=== PATIENT | male | born 1975 | race Caucasian/White ===

== ENCOUNTER → 2018-04-14 | Outpatient (CLI) | payer BC ==
--- NOTE | 2018-04-14 16:53 | NM ---
EXAMINATION TYPE: NM hepatobiliary w EF DATE OF EXAM: 04/14/2018 COMPARISON: NONE HISTORY: TECHNIQUE: After the intravenous administration of 5.5 mCi Tc 99m Mebrofenin hepatobiliary scintigrap hy is performed. Immediate images post injection. FINDINGS: There is satisfactory initial accumulation of tracer by the liver. The gallbladder is visualized wit hin 8 minutes. The small bowel activity is noted within 28 minutes. At one hour 8 ounces of oral en sure plus is given to mimic CCK and gallbladder ejection fraction is calculated at 87 %, in the kathy l range. Therefore there is no scintigraphic evidence of cystic or common bile duct obstruction to s uggest acute cholecystitis or gallbladder dyskinesia. IMPRESSION: Normal exam. Normal gallbladder ejection fraction. No focal liver defect.
== END | disposition home or self-care (01) ==
LOC: RADNMMAIN 14:34
PROVIDERS: ATTEND Family Medicine
DX: R10.11 Right upper quadrant pain (principal); D49.6 Neoplasm of unspecified behavior of brain
CPT/HCPCS: 78226; A9537

== ENCOUNTER → 2018-04-17 | Outpatient (CLI) | payer BC ==
--- NOTE | 2018-04-18 06:54 | CT ---
EXAMINATION TYPE: CT brain wo/w con DATE OF EXAM: 04/17/2018 COMPARISON: CT brain April 29, 2015 HISTORY: headaches, dizziness, changes in vision. hx of dermoid cyst X [address] DLP: 1922 mGycm Automated Exposure Control for Dose Reduction was Utilized. TECHNIQUE: ,CT scan of the head is performed without and with IV Contrast, patient injected with 100 mL of Isovue 300. FINDINGS: Noncontrast images show no acute intracranial hemorrhage or midline shift. The ventricles and sulci are within normal limits in size. Lal-white matter differentiation is maintained. Postcon trast images show no suspicious enhancing intraparenchymal mass. There is rim calcified fat dense les ion superior right temporal region measuring 1.8 x 1.0 cm transversely by 1.4 cm craniocaudal dimensi on axial image 19 and coronal image 30. Lesion stable in size and appearance from prior CT Persistent anterior metopic suture noted. The globes are intact and the visualized sinuses are clear. Dominant left vertebral artery is incidentally noted. 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
== END | disposition home or self-care (01) ==
LOC: RADCTMAIN 16:41
PROVIDERS: ATTEND Family Medicine
DX: D49.6 Neoplasm of unspecified behavior of brain (principal)
CPT/HCPCS: 70470; Q9967

== ENCOUNTER → 2018-12-15 | Outpatient (CLI) | payer BC ==
--- NOTE | 2018-12-15 09:00 | US ---
EXAMINATION TYPE: US thyroid st tissue head/neck DATE OF EXAM: 12/15/2018 COMPARISON: US from 2010 CLINICAL HISTORY: E04.1 Thyroid Nodule. GLAND SIZE: Right Lobe: 5.3 x 1.7 x 1.5 cm Overall Parenchyma: homogenous Left Lobe: 5.4 x 1.6 x 1.3 cm Overall Parenchyma: homogeneous Isthmus Thickness: 0.3 cm NODULES RIGHT: # of nodules measured on right: 1 1. 0.7 X 0.7 x 0.7 cm hypoechoic solid nodule at the mid pole with well-defined margins; . This no dule is wider than tall and shows no intranodular vascularity. Prior size: 0.7 x 0.7 x 0.7 cm LEFT: # of nodules measured on left: 1 1. 0.5 X 0.3 x 0.4 cm hypoechoic mixed nodule at the mid pole with well-defined margins; . This no dule is wider than tall and shows no intranodular vascularity. Prior size: 0.5 cm Additional tiny cyst seen upper pole. ISTHMUS: # of nodules measured in the isthmus: 0 Bilateral neck scanned, no evidence of lymphadenopathy. Nodules as described. IMPRESSION: Essentially stable exam.
== END | disposition home or self-care (01) ==
LOC: RADUSWWP 07:48
PROVIDERS: ATTEND Family Medicine
DX: E04.1 Nontoxic single thyroid nodule (principal)
CPT/HCPCS: 76536

== ENCOUNTER → 2020-09-21 | Outpatient (CLI) | payer BC ==
--- NOTE | 2020-09-21 11:50 | ECHOF ---
Referral Reason:R07.89 Atypical Chest Pain MEASUREMENTS -------- HEIGHT: 182.9 cm WEIGHT: 88.5 kg BP: IVSd: 0.8 cm (0.6 - 1.1) LVIDd: 4.4 cm (3.9 - 5.3) LVPWd: 1.0 cm (0.6 - 1.1) IVSs: 1.3 cm LVIDs: 3.0 cm LVPWs: 1.2 cm LA Diam: 3.7 cm (2.7 - 3.8) LAESV Index (A-L): 20.96 ml/m Ao Diam: 3.2 cm (2.0 - 3.7) AV Cusp: 2.0 cm (1.5 - 2.6) MV EXCURSION: 29.154 mm (> 18.000) MV EF SLOPE: 159 mm/s (70 - 150) EPSS: 0.7 cm MV E Franco: 0.56 m/s MV DecT: 178 ms MV A Franco: 0.62 m/s MV E/A Ratio: 0.90 RAP: 5.00 mmHg RVSP: 24.64 mmHg FINDINGS -------- Sinus rhythm. This was a technically good study. LV size, wall thickness and systolic function are normal, with an EF greater than 55%. The left shalom tricular size is normal. The right ventricle is normal in size. Normal LA size by volume 22+/-6 ml/m2. The right atrial size is normal. The aortic valve is trileaflet, and appears structurally normal. No aortic stenosis or regurgitation. Mild mitral regurgitation is present. Mild tricuspid regurgitation present. Right ventricular systolic pressure is normal at < 35 mmHg. There is no pulmonic regurgitation present. The aortic root size is normal. There is no pericardial effusion. CONCLUSIONS -------- 1. LV size, wall thickness and systolic function are normal, with an EF greater than 55%. 2. The left ventricular size is normal. 3. The right ventricle is normal in size. 4. Normal LA size by volume 22+/-6 ml/m2. 5. The right atrial size is normal. 6. Mild mitral regurgitation is present. 7. Mild tricuspid regurgitation present. 8. The aortic root size is normal. 9. There is no pericardial effusion. BOILER HOUSE INSPECTOR: Holly Rao RDCS
--- NOTE | 2020-09-21 12:10 | P.STRESS ---
- Stress Test Note Stress Test Results/Findings: Exam Performed: stress test Exam Date: 09/21/20 Reason for Exam: ATYPICAL CP Height: 5 ft 11 in Weight: 86 kg Protocol: EXERCISE TOLERANCE TEST Stage: 5 Duration of Exercise: 13:37 Resting Heart Rate: 63 Resting Blood Pressure: 126/88 Maximum Achieved Heart Rate: 185 Maximum Achieved Blood Pressure: 167/95 85% PMHR: 149 100% PMHR: 175 METS: 14.1 Technologist Comment: Stress Test Results/Findings: Patient underwent exercise stress EKG with a Owen protocol treadmill stress test. Patient exercised into Stage 5 for a total of 13 minutes 37 seconds reaching a total of 14.1 METS. Patient's maximum heart rate was 185 which represented 100 % age-predicted maximum heart rate. Stress EKG findings: At baseline patient's EKG showed normal sinus rhythm, normal axis, no significant ST or T wave abnormalities. At peak exercise, EKG showed no significant change from baseline. Conclusions: 1. Normal EKG response to exercise without evidence of inducible ischemia. 2. Excellent exercise capacity.
== END | disposition home or self-care (01) ==
LOC: RADNMMAIN 08:27
PROVIDERS: ATTEND Family Medicine
DX: I08.1 Rheumatic disorders of both mitral and tricuspid valves (principal)
CPT/HCPCS: 93017; 93306

== ENCOUNTER 2023-03-10 11:51 | Emergency (ER) | payer BC ==
[2023-03-10] MEDS ORDERED: DIPH,PERTUS(ACELL)TETVAC-LF 0.5 ML VIAL IM ONE (12:33)
--- NOTE | 2023-03-10 12:36 | ED ---
Wound/Laceration HPI - General Chief Complaint: Wound/Laceration Stated Complaint: finger lacteration Time Seen by Provider: 03/10/23 12:12 Source: patient Mode of arrival: ambulatory Limitations: no limitations - History of Present Illness Initial Comments: The patient's 48-year-old gentleman presents emergency room with complaints of a laceration of the left distal third finger. Patient went to reach over a saw to get a piece of wood out of miter saw when the blade cut his finger. Patient is right-handed. His tetanus has not been updated in several years. He denies any numbness tingling or decreased range of motion of the finger. - Related Data Previous Rx's Medication Instructions Recorded Cephalexin [Keflex] 500 mg PO Q6HR #40 cap 03/10/23 Allergies Allergy/AdvReac Type Severity Reaction Status Date / Time No Known Allergies Allergy Verified 03/10/23 12:09 Review of Systems ROS Statement: Those systems with pertinent positive or pertinent negative responses have been documented in the HPI. ROS Other: All systems not noted in ROS Statement are negative. Past Medical History Past Medical History: No Reported History History of Any Multi-Drug Resistant Organisms: None Reported Past Surgical History: No Surgical Hx Reported, Hernia Repair, Orthopedic Surgery Past Psychological History: No Psychological Hx Reported Smoking Status: Never smoker Past Alcohol Use History: None Reported Past Drug Use History: None Reported General Exam Limitations: no limitations General appearance: alert, in no apparent distress Head exam: Present: atraumatic Eye exam: Present: normal appearance, PERRL Extremities exam: Present: full ROM, other (contused,irregular laceration of the distasl left 3rd finger over the tufy, NVI, Tendons intact. Normal ROM and strength over all joints with flexion & extension, 2.5cm laceration with skin avulsion) Neurological exam: Present: oriented X3, CN II-XII intact Skin exam: Present: warm, dry (irregular 2.5cm laceration distal left 3rd finger with partial avulsion and contused tissue. bleeding controlled, no FB. NVI) Course Vital Signs 03/10/23 12:07 Temperature 98.1 F Pulse Rate 65 Respiratory 18 Rate Blood Pressure 146/82 O2 Sat by Pulse 99 Oximetry - Reevaluation(s) Reevaluation #1: 03/10/23 1351 Patient had his wound soaked in saline with Betadine prior to the laceration repair and imaging. I discussed x-rays which were negative for any fracture or deformity or other acute changes. No foreign body seen. Patient is neurovascular intact and tendon is intact. He has normal range of motion and strength at all joints specifically the DIP. I was able to tack some of the laceration back using 5 sutures. There is heard of the laceration that was avulsion that was left open as there were no edges to approximate.the patient's tetanus was updated today. I will cover with prophylactic antibiotics as this was a dirty wound with a partial avulsion. I discussed following up with the PCP and discussed suture removal and signs to return to the emergency room. Procedures - Laceration Laceration #1 Consent Obtained: verbal consent Site: other (Distal left third finger) Description: avulsion, irregular, contaminated Depth: simple, single layer Anesthetic Used: lidocaine 1% Anesthesia Technique: local infiltration Pre-repair: wound explored, irrigated extensively, deep structures intact, wound margins revised, extreme cleansing Type of Sutures: nylon Size of Sutures: 4-0 Technique: simple, interrupted, running Complications: pain, bleeding Patient Tolerated Procedure: well Additional Comments: There is partially avulsed area lateral to the suture repair. Contused tissue was holding on by a few fibers, this was trimmed off. Surgifoam was placed over the avulsed area. bleeding controlled. Medical Decision Making - Medical Decision Making Was pt. sent in by a medical professional or institution (DENYS Mckeon, BOARD CERTIFIED MUSIC THERAPIST, urgent care, hospital, or custodial...) When possible be specific @ -[No] Did you speak to anyone other than the patient for history (EMS, parent, family, police, friend...)? What history was obtained from this source @ - at bedside Did you review nursing and triage notes (agree or disagree)? Why? @ -[I reviewed and agree with nursing and triage notes] Were old charts reviewed (outside hosp., previous admission, EMS record, old EKG, old radiological studies, urgent care reports/EKG's, custodial records)? Report findings @ -[No old charts were reviewed] Differential Diagnosis (chest pain, altered mental status, abdominal pain women, abdominal pain men, vaginal bleeding, weakness, fever, dyspnea, syncope, headache, dizziness, GI bleed, back pain, seizure, CVA, palpatations, mental health, musculoskeletal)? @ -Crush injury, contusion of the finger, open laceration, laceration of the finger, tetanus vaccination EKG interpreted by me (3pts min.). @ -[As above] X-rays interpreted by me (1pt min.). @ -X-ray shows a superficial laceration however there is no fracture of the bones, no deformity no foreign body seen. Radiology report pending for confirmation of acute changes. CT interpreted by me (1pt min.). @ -[None done] U/S interpreted by me (1pt. min.). @ -[None done] What testing was considered but not performed or refused? (CT, X-rays, U/S, labs)? Why? @ -[None] What meds were considered but not given or refused? Why? @ -[None] Did you discuss the management of the patient with other professionals (professionals i.e. , PA, BOARD CERTIFIED MUSIC THERAPIST, lab, RT, psych nurse, case management social worker, regional retail sales manager, teacher, medical scientific officer, catalytic case operator)? Give summary @ -Discussed patient's injury workup disposition with Dr. Durbin, attending ED physician today. Was smoking cessation discussed for >3mins.? @ -[No] Was critical care preformed (if so, how long)? @ -[No] Were there social determinants of health that impacted care today? How? (Homelessness, low income, unemployed, alcoholism, drug addiction, transportation, low edu. Level, literacy, decrease access to med. care, correction, rehab)? @ -[No] Was there de-escalation of care discussed even if they declined (Discuss DNR or withdrawal of care, Hospice)? DNR status @ -[No] What co-morbidities impacted this encounter? (DM, HTN, Smoking, COPD, CAD, Cancer, CVA, ARF, Chemo, Hep., AIDS, mental health diagnosis, sleep apnea, morbid obesity)? @ -[None] Was patient admitted / discharged? Hospital course, mention meds given and route, prescriptions, significant lab abnormalities, going to OR and other pertinent info. @ -Patient stable. He is nothing intact and tendons intact. He is stable to follow-up as an outpatient and may continue treatment with antibiotics and signs return to the emergency room at home. He does understand signs return to the emergency room. we discussed following up with the primary care physician for suture removal as well. Undiagn osed new problem with uncertain prognosis? @ -[No] Drug Therapy requiring intensive monitoring for toxicity (Heparin, Nitro, Insulin, Cardizem)? @ -[No] Were any procedures done? @ -Laceratojn repair of the distal Left 3rd finger Diagnosis/symptom? @ -:Laceration of the Distal left third finger, avulsion laceration of the finger, tetanus vaccination, contusion of the distal left third finger Acute, or Chronic, or Acute on Chronic? @ -ACute ] Uncomplicated (without systemic symptoms) or Complicated (systemic symptoms)? @ -[Uncomplicated] Side effects of treatment? @ -[No] Exacerbation, Progression, or Severe Exacerbation? @ -[No] Poses a threat to life or bodily function? How? (Chest pain, USA, LA, pneumonia, PE, COPD, DKA, ARF, appy, cholecystitis, CVA, Diverticulitis, Homicidal, Suicidal, threat to staff... and all critical care pts) @ -[No] - Radiology Data Radiology results: report reviewed, image reviewed Disposition Clinical Impression: Laceration, Avulsion, finger tip, Tetanus toxoid vaccination administered at current visit, Finger contusion Disposition: HOME SELF-CARE Condition: Good Instructions (If sedation given, give patient instructions): Diphtheria/Pertussis/Tetanus Vaccine (By injection), Finger Laceration (ED), Skin Avulsion (ED), Tetanus (ED) Prescriptions: Cephalexin [Keflex] 500 mg PO Q6HR #40 cap Is patient prescribed a controlled substance at d/c from ED?: No Referrals: Ken Dooley DO [Primary Care Provider] - 1-2 days Time of Disposition: 14:08
--- NOTE | 2023-03-10 12:55 | XR ---
EXAMINATION TYPE: XR finger LT DATE OF EXAM: 03/10/2023 12:49 PM CLINICAL INDICATION:Male, 48 years old with history of laceration, contusion distal 3rd finger; COMPARISON: None TECHNIQUE: XR finger LT Frontal, lateral and oblique views were obtained. FINDINGS: Soft tissue injury to the third digit distal phalanx no evidence of radiopaque foreign body . Normal alignment of the visualized joints. No acute osseous pathology is identified. No evidence of soft tissue swelling. IMPRESSION: 1. No acute osseous pathology. 2. Soft tissue injury to the third digit distal phalanx no evidence of radiopaque foreign body.
[2023-03-10] MEDS ORDERED: LIDOCAINE 1% INJ 10MG/ML (20 ML MDV) SQ ONE (13:05)
[2023-03-10] MEDS ORDERED: GELATIN SPONGE,ABSORB (LARGE) 1 EACH SPONGE TOPICAL STA (13:24)
[2023-03-10] MEDS ORDERED: CEPHALEXIN 500 MG CAP PO STA (13:52)
[2023-03-10 14:33] VITALS: BP 140/80; PULSE 64; RESP 20; TEMP 97.8
== END 2023-03-10 14:31 | disposition home or self-care (01) ==
LOC: EC 11:51
DX: S61.213A Laceration without foreign body of left middle finger without damage to nail, initial encounter (principal); Z23 Encounter for immunization; W26.8XXA Contact with other sharp object(s), not elsewhere classified, initial encounter
CPT/HCPCS: 73140; 90715; 12001; 99283; 90471; J2001